=== PATIENT | female | born 1975 | race Caucasian/White ===

== ENCOUNTER → 2020-11-16 07:22 | Outpatient (CLI) | payer BC, SELFPAY ==
--- NOTE | ~2020-11-16 | MM_ITS ---
EXAMINATION: MM screening kim[facility] BI w freya HISTORY: Screening TECHNIQUE: Craniocaudal and mediolateral oblique 3-D tomosynthesis images were obtained and synthetic 2-D images were generated. CAD analysis was submitted and interpreted. COMPARISON: Comparison to multiple prior studies sequentially, with oldest reviewed study dated 04/15. BREAST PARENCHYMAL COMPOSITION: The breasts are heterogeneously dense, which may obscure small masses . FINDINGS: There are developing masses in the right periareolar and right upper outer breast as well a s the left upper outer quadrant anteriorly. There are no suspicious calcifications or architectural d istortion. IMPRESSION: 1. Developing bilateral breast masses. 2. Additional mammographic views and possible breast ultrasound are recommended. BI-RADS Category 0: Incomplete: Needs additional imaging evaluation. Reviewed, dictated and finalized at location A. IMPRESSION: 1. Developing bilateral breast masses. 2. Additional mammographic views and possible breast ultrasound are recommended . BI-RADS Category 0: Incomplete: Needs additional imaging evaluation.
== END ==
PROVIDERS: Visit Provider Obstetrics & Gynecology
DX: Z12.31 Encounter for screening mammogram for malignant neoplasm of breast (principal); R92.8 Other abnormal and inconclusive findings on diagnostic imaging of breast
CPT/HCPCS: 77063; 77067

== ENCOUNTER → 2020-12-18 12:29 | Outpatient (CLI) | payer BC, SELFPAY ==
--- NOTE | ~2020-12-18 | MR_ITS ---
EXAMINATION: MR brain/brain stem wo/w con DATE: 12/18/2020 13:20 INDICATION: Multiple sclerosis. TECHNIQUE: Magnetic resonance imaging (MRI) of the brain and brainstem was performed without and with 15 mL MultiHance intravenous contrast. Sequences included sagittal and axial T1-weighted FLAIR, axia l T1-weighted FSE, axial diffusion-weighted FS EPI, sagittal T2-weighted FLAIR, axial T2*-weighted GR E, axial T2-weighted FLAIR Propeller, and axial T2-weighted Propeller. Postcontrast sequences include d axial, coronal, and sagittal T1-weighted FSE. Apparent diffusion coefficient (ADC) maps were create d. COMPARISON: Brain MRI 04/02/2019 FINDINGS: There are approximately 7 total lesions of increased T2-weighted signal intensity in the br ain. Of these lesions, approximately 5 are periventricular, 2 are juxtacortical, and none are infrate ntorial. None of the lesions enhance. There is no intracranial hemorrhage or acute ischemic infarct. The ventricles are normal in size. The paranasal sinuses are clear. The orbits are normal. There is a right mastoid effusion. IMPRESSION: 1. Stable mild white matter disease, consistent with multiple sclerosis. 2. Chronic right mastoid effusion. Reviewed, dictated and finalized at location A.
[2020-12-18 12:54] LABS: Estimated Glomerular Filt Rate > 60
== END ==
DX: G35 Multiple sclerosis (principal); R93.89 Abnormal findings on diagnostic imaging of other specified body structures; R20.8 Other disturbances of skin sensation; H74.8X1 Other specified disorders of right middle ear and mastoid
CPT/HCPCS: 70553; A9577

== ENCOUNTER → 2020-12-20 08:00 | Outpatient (CLI) | payer BC, SELFPAY ==
--- NOTE | ~2020-12-20 | MMUS_ITS ---
EXAMINATION: MM diagnostic kimberly BI w freya, US breast BI complete HISTORY: Developing bilateral breast masses reported on 11/16/2020 screening mammogram examination TECHNIQUE: Additional 3-D tomosynthesis images of both breasts were performed and synthetic 2-D image s were generated. CAD analysis was submitted and interpreted. High resolution bilateral complete shanel st ultrasound was performed. COMPARISON: 11/16/2020 bilateral digital screening mammogram FINDINGS: MAMMOGRAPHIC FINDINGS: Right breast: Approximately 8mm mass in the medial subareolar right breast Approximately 10.5 mm circumscribed mass with radiolucent hilus consistent with intramammary lymph no de in the posterior upper outer right breast 4.5 mm circumscribed rounded opacity in the upper outer right breast at mid depth. Left breast: 11 mm circumscribed mass with radiolucent hilus consistent with intramammary lymph node in the upper outer quadrant of left breast ULTRASOUND: Right breast: Multiple scattered cysts are noted, including 2:00 subareolar cyst measuring up to 9.4 mm maximal dimension, with through transmission posterior enhancement. At 6:00 subareolar area there is a parallel to 2.3 x 14 x 7 mm sonolucency, consistent with benign pr ocess. At 9:00 9 cm from the nipple there is an up to 11.5 mm benign-appearing lymph node. At 11:00 7 cm from nipple: There is another 11.5 mm benign-appearing lymph node. 10:00 10 cm from nipple: Approximately 11 mm benign-appearing lymph node At 11:00 6 cm from the nipple there is a mildly irregular hypoechoic solid lesion measuring approxima tely 3.7 x 4.6 x 4.4 mm, with some posterior shadowing. Ultrasound-guided biopsy is recommended. Occasional additional smaller sonolucent lesions most likely due to cysts are noted. Left breast: Scattered circumscribed hypoechoic or sonolucent lesions are noted, the largest at 6:00 2 cm from the nipple measuring 2.2 x 8 x 11 mm dimension. There is a benign appearing lymph node at 2:00 6 cm from nipple, measuring up to 11 mm. IMPRESSION: 1. Multiple bilateral breast cysts and lymph nodes. 2. Right breast 11:00 6 cm from nipple: Irregular hypoechoic solid lesion measuring up to 4.6 mm with some posterior shadowing; ultrasound-guided biopsy should be considered. Alternatively, if desired, this can be followed up in 6 months with repeat ultrasound examination. BI-RADS category 4, suspicious findings. Reviewed, dictated and finalized at location A. IMPRESSION: 1. Multiple bilateral breast cysts and lymph nodes. 2. Right breast 11:00 6 cm from nipple: Irregular hypoechoic solid lesion measu ring up to 4.6 mm with some posterior shadowing; ultrasound-guided biopsy shoul d be considered. Alternatively, if desired, this can be followed up in 6 months with repeat ultrasound examination. BI-RADS category 4, suspicious findings.
== END ==
PROVIDERS: Visit Provider Obstetrics & Gynecology
DX: N60.01 Solitary cyst of right breast (principal); N63.11 Unspecified lump in the right breast, upper outer quadrant; N63.41 Unspecified lump in right breast, subareolar
CPT/HCPCS: 76641; 77062; 77066; G0279

== ENCOUNTER 2021-01-16 09:23 | Outpatient (CLI) | payer BC, SELFPAY ==
--- NOTE | ~2021-01-16 | MMUS_ITS ---
EXAMINATION: US breast biopsy RT w image, MM post biopsy invasive RT DATE: 01/16/2021 10:55 (accession [id number]), 01/16/2021 10:54 (accession [id number]) INDICATION: Indeterminate right breast mass. Ultrasound-guided core biopsy is requested to evaluate f or malignancy. TECHNIQUE AND FINDINGS: The risks and potential benefits of the procedure were discussed with the patient including bleeding, infection, and nondiagnostic specimen. A time out was performed. The skin of the right breast was pr epared and draped in usual sterile fashion. 1% lidocaine was used for superficial anesthesia. 1% lido reji with epinephrine was used for deep anesthesia. A vacuum-assisted biopsy gun needle was advanced through to the outer edge of the region of interest from an inferior approach utilizing sonographic guidance. A total of two tissue core samples were obt ained through the lesion. A tissue marker clip was then placed at the biopsy site. Hemostasis was ach ieved. A sterile bandage was applied. The patient tolerated procedure well and there was no evidence of immediate complication. The patient was given verbal instructions to return to the Emergency Department in the event of severe breast pa in or rapid breast enlargement. A two view right breast mammogram was obtained to document tissue mar ker clip placement. IMPRESSION: 1. Successful ultrasound-guided vacuum-assisted biopsy of right breast mass with tissue marker placem ent. Reviewed, dictated and finalized at location A. IMPRESSION: 1. Successful ultrasound-guided vacuum-assisted biopsy of right breast mass wit h tissue marker placement.
== END 2021-01-16 09:24 | disposition home or self-care (01) ==
PROVIDERS: Visit Provider Surgery
DX: R92.8 Other abnormal and inconclusive findings on diagnostic imaging of breast (principal)
CPT/HCPCS: 19083; 88305

== ENCOUNTER → 2021-12-18 07:25 | Outpatient (CLI) | payer OTHER, SELFPAY ==
--- NOTE | ~2021-12-18 | MM_ITS ---
EXAMINATION: MM screening [facility] BI w freya HISTORY: Screening mammogram TECHNIQUE: Craniocaudal and mediolateral oblique 3-D tomosynthesis images were obtained and synthetic 2-D images were generated. CAD analysis was submitted and interpreted. COMPARISON: 12/20/2020, 11/16/2020, 09/25/2018, 08/28/2017 BREAST PARENCHYMAL COMPOSITION: The breasts are heterogeneously dense, which may obscure small masses . FINDINGS: There is no suspicious mass, calcification, or architectural distortion to suggest malignan cy in either breast. There has been no suspicious interval change. IMPRESSION: 1. No mammographic evidence of malignancy. 2. Recommend routine screening mammography in one year. BI-RADS Category 1: Negative Reviewed, dictated and finalized at location A.
== END ==
PROVIDERS: PCP Family Medicine; Visit Provider Obstetrics & Gynecology Gynecology
DX: Z12.31 Encounter for screening mammogram for malignant neoplasm of breast (principal)
CPT/HCPCS: 77063; 77067

== ENCOUNTER → 2022-06-11 13:02 | Outpatient (CLI) | payer OTHER, SELFPAY ==
--- NOTE | ~2022-06-11 | MR_ITS ---
EXAMINATION: MR brain/brain stem wo/w con DATE: 06/11/2022 13:51 INDICATION: Multiple sclerosis. TECHNIQUE: Magnetic resonance imaging (MRI) of the brain and brainstem was performed without and with 16 mL MultiHance intravenous contrast. COMPARISON: Brain MRI 12/18/2020 FINDINGS: There are approximately 7 total lesions of increased T2-weighted signal intensity in the br ain. Of these lesions, approximately 5 are periventricular, 2 are juxtacortical, and none are infrate ntorial. None of the lesions enhance. There is no intracranial hemorrhage or acute ischemic infarct. The ventricles are normal in size. The paranasal sinuses are clear. The orbits are normal. There is a right mastoid effusion. IMPRESSION: 1. Stable mild white matter disease, consistent with multiple sclerosis. 2. Chronic right mastoid effusion. Reviewed, dictated and finalized at location A. GUIDE
== END ==
PROVIDERS: PCP Family Medicine
DX: G35 Multiple sclerosis (principal); D84.821 Immunodeficiency due to drugs; E55.9 Vitamin D deficiency, unspecified; R20.8 Other disturbances of skin sensation; R53.82 Chronic fatigue, unspecified; Z86.16 Personal history of COVID-19; Z51.81 Encounter for therapeutic drug level monitoring; Z79.899 Other long term (current) drug therapy; R90.82 White matter disease, unspecified; H66.91 Otitis media, unspecified, right ear
CPT/HCPCS: 70553; A9577

== ENCOUNTER → 2022-07-26 08:46 | Outpatient (CLI) | payer OTHER, SELFPAY ==
--- NOTE | ~2022-07-26 | MMUS_ITS ---
EXAMINATION: MM diagnostic kimberly RT w freya, US breast RT complete HISTORY: Palpable right breast lump felt during clinical breast examination TECHNIQUE: Additional 3-D tomosynthesis images of the right breast were performed and synthetic 2-D i mages were generated. CAD analysis was submitted and interpreted. High resolution complete right shanel st ultrasound was performed. COMPARISON: Comparison to multiple prior studies sequentially, with oldest reviewed study dated 08/28. BREAST PARENCHYMAL COMPOSITION: The breasts are heterogeneously dense, which may obscure small masses FINDINGS: MAMMOGRAPHIC FINDINGS: There are no new masses, calcifications or architectural distortion in the right breast to suggest ma lignancy. There is a tissue marker in the upper outer quadrant. ULTRASOUND: Complete US of all 4 quadrants of the right breast and retroareolar region was reviewed. There are mu ltiple cysts of the right breast. At 3:00 near the areola there is a round 6 mm hypoechoic mass with enhanced through transmission and low-level internal echoes. No internal vascularity. At 6-7:00, 3 cm from the nipple there is a 1.5 cm cyst. At 10:00, 6 cm from the nipple there is an intramammary lymp h node measuring 9 mm. At 10:00, 3 cm from the nipple there is an irregular shaped hypoechoic mass me asuring 10 x 5 x 8 mm with some angular margins, heterogeneous internal echotexture and mixed posteri or attenuation. No internal vascularity. There are adjacent hypoechoic nodules with similar echotextu re. IMPRESSION: 1. New complex irregular shaped hypoechoic mass of the right breast at 10:00, 3 cm from the nipple. T he largest dominant mass measures up to 10 mm. There are several smaller satellite nodules. 2. Ultrasound-guided right breast biopsy of dominant right breast mass at 10:00, 3 cm from the nipple recommended. BI-RADS category 4, suspicious findings. Reviewed, dictated and finalized at location A. 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 New complex irregular shaped hypoechoic mass of the right breast at 10:00, 3 cm from the nipple. The largest dominant mass measures up to 10 mm. There are several smaller satellite nodules. 2. Ultrasound-guided right breast biopsy of dominant right breast mass at 10:00 , 3 cm from the nipple recommended. BI-RADS category 4, suspicious findings.
== END ==
PROVIDERS: PCP Nurse Practitioner Family; Visit Provider Advanced Practice Midwife
DX: N63.12 Unspecified lump in the right breast, upper inner quadrant (principal); R92.8 Other abnormal and inconclusive findings on diagnostic imaging of breast
CPT/HCPCS: 76641; 77061; 77065; G0279

== ENCOUNTER 2022-08-13 08:53 | Outpatient (CLI) | payer OTHER, SELFPAY ==
--- NOTE | ~2022-08-13 | US_ITS ---
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 The cystic mass at the 10:00 position, 3 cm from the nipple was targeted for aspiration. The procedure and its risk and benefits were discu ssed with the patient. Risks included but were not limited to pain, bleeding and infection. The fawad ent verbalized understanding and provided written consent. A time-out was performed to document the patient's name, date of , and site of procedure. The tamika guzman's right breast was prepped in usual sterile fashion. 1% lidocaine was used for local anesthesi a. Utilizing ultrasound guidance, a 18-gauge needle was advanced into the lesion in the right breast at 10:00, 3 cm from the nipple. Aspiration was performed. Slightly cloudy/clear fluid obtained with resolution of the lesion of interest. No biopsy required. The patient tolerated procedure without immediate complication. Sterile bandages were applied over t he aspiration site(s).] FINDINGS: Successful ultrasound-guided aspiration of right breast mass at 10:00, 3 cm from the nipple . Complete resolution of the lesion of interest. IMPRESSION: 1. Complete resolution of the complicated cyst of the right breast following aspiration. Reviewed, dictated and finalized at location A. RINARY TECHNICIAN IMPRESSION: 1. Complete resolution of the complicated cyst of the right breast following a spiration.
== END 2022-08-13 08:54 | disposition home or self-care (01) ==
PROVIDERS: PCP Nurse Practitioner Family; Visit Provider Surgery
DX: N63.10 Unspecified lump in the right breast, unspecified quadrant (principal)
CPT/HCPCS: 19000; 76942

== ENCOUNTER 2023-03-15 12:52 | Emergency (ER) | payer OTHER, SELFPAY ==
[2023-03-15 13:20] VITALS: BP 142/87; PULSE 93; RESP 18; TEMP 37.4; O2SAT 100
--- NOTE | 2023-03-15 14:05 | ED.URI ---
HPI - URI/Sore Throat General Chief Complaint: Upper Respiratory Infection Stated Complaint: sorethroat Time Seen by Provider: 03/15/23 13:59 Source: patient and RN notes reviewed Mode of arrival: ambulatory Limitations: no limitations History of Present Illness HPI Narrative: Patient presents today complaining of 2 day history of right ear pain, right sided sore throat, and occasionally productive cough. Currently rates her pain 2/10 and has been taking Sudafed and Tylenol with some mild relief. Denies any known sick contacts except for her sister that tested positive for COVID-19 5 days ago. Patient tested herself this morning and was negative. Related Data Home Medications Medication Instructions Recorded Confirmed ocrelizumab 30 mg/mL intravenous 300 mg IV ONCE 06/21/22 03/15/23 solution (Ocrevus) Allergies Allergy/AdvReac Type Severity Reaction Status Date / Time No Known Allergies Allergy Verified 03/15/23 13:57 Review of Systems Review of Systems: CONSTITUTIONAL: Denies body aches, fever, chills, or sweats. EYES: Denies visual changes, redness, or discharge. ENT: Denies rhinorrhea, congestion. + sore throat, right ear pain CARDIOVASCULAR: Denies chest pain, palpitations, or edema. RESPIRATORY: Denies dyspnea.+ cough GASTROINTESTINAL: Denies abdominal pain, nausea, vomiting, or diarrhea. GENITOURINARY: Denies dysuria or hematuria. SKIN: Denies rash, itching, or wounds. MUSCULOSKELETAL: Denies back pain, joint pain, or myalgia. NEUROLOGIC: Denies headache, numbness, tingling, or weakness. PSYCH: Denies depression or anxiety. [facility] Past Medical History Medical History Acute otitis media, right Claustrophobia Encounter to establish care Laryngitis, acute Multiple sclerosis Otitis externa Rhinitis Vitamin D deficiency Surgical History Surgical History H/O tubal ligation History of endometrial ablation Family History Family History Father Hypertension Depression Lung cancer Mother Arrhythmia Sibling Clotting disorder Grandparent Diabetes mellitus Grandparent Lung cancer Brain cancer Social History Social History Smoking status: Former smoker Smoking end date: 07/14/15 Alcohol intake: current Substance use: never Lack of Transportation: No Lack of Food: Never True Current Housing: I Have Housing Concerned About Future Housing: No Difficulty Paying Gas/Electric Bills: No Difficulty Paying for Meds: No Currently Unemployed: No Education: Associate Degree Difficulty w/ Childcare or Family Care: No Living arrangements: with family Occupation/Education: occupation 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 Please see nursing chart for further information. There is no relevant family history pertinent to the presenting complaint Exam Narrative: GENERAL: Well-appearing, well-nourished, and in no acute distress. HEAD: Normocephalic, atraumatic. EYES: EOMI. No redness or drainage. Conjunctivae normal. ENT: Mucous membranes pink and moist. Nares clear. No rhinorrhea. TMs normal bilaterally. Throat mildly erythematous without edema or exudate. Uvula midline. NECK: Normal AROM. Supple. No lymphadenopathy. CHEST: No respiratory distress. Clear to auscultation. HEART: Regular rate and rhythm. No murmur appreciated. Normal peripheral pulses. EXTREMITIES: Normal range of motion. No edema. SKIN: Warm, dry, no rash. Capillary refill normal. Normal skin turgor. NEURO: No focal deficits. Alert and
== END 2023-03-15 14:33 | disposition home or self-care (01) ==
PROVIDERS: Emergency Provider Nurse Practitioner; PCP Family Medicine
DX: J06.9 Acute upper respiratory infection, unspecified (principal); J02.9 Acute pharyngitis, unspecified; Z87.891 Personal history of nicotine dependence; G35 Multiple sclerosis
CPT/HCPCS: 87081; 87880; 99213; G0463

== ENCOUNTER 2023-10-20 15:13 | Outpatient (CLI) | payer OTHER, SELFPAY ==
--- NOTE | ~2023-10-20 | MR_ITS ---
. EXAMINATION: MR brain/brain stem wo/w con DATE: 10/20/2023 15:57 INDICATION: Multiple sclerosis. TECHNIQUE: Magnetic resonance imaging (MRI) of the brain and brainstem was performed without and with 15 mL MultiHance intravenous contrast. COMPARISON: None currently available. FINDINGS: There are approximately 5 lesions of increased T2-weighted signal intensity in the cerebral white matter including periventricular and juxtacortical lesions. There is no infratentorial lesion. There is no acute ischemic infarct or intracranial hemorrhage. The ventricles are normal in size. Th ere is a right mastoid effusion. The orbits are normal. The paranasal sinuses are clear. IMPRESSION: 1. Mild white matter disease, consistent with multiple sclerosis. These findings are similar to those described on the report from the brain MRI from 06/11/2022. Those images are not currently available . 2. Chronic right mastoid effusion. Reviewed, dictated and finalized at location A. IMPRESSION: 1. Mild white matter disease, consistent with multiple sclerosis. These finding s are similar to those described on the report from the brain MRI from 06/11/20 22. Those images are not currently available. 2. Chronic right mastoid effusion.
== END 2023-10-20 15:14 ==
LOC: MICIMG 15:15
DX: G35 Multiple sclerosis (principal); H74.8X1 Other specified disorders of right middle ear and mastoid; R90.82 White matter disease, unspecified
CPT/HCPCS: 70553; A9577

== ENCOUNTER 2024-05-27 05:52 | Day surgery (SDC) | payer OTHER, SELFPAY ==
[2024-03-09 13:34] VITALS: BMI 26.0
[2024-05-27 06:49] VITALS: BP 126/76; PULSE 80; RESP 16; TEMP 36.7; O2SAT 98; BMI 24.0
[2024-05-27] MEDS: LACTATED RINGERS 1,000 ML 150 ML IV CONT (06:52)
--- NOTE | 2024-05-27 07:00 | WPDANESEPPF ---
Anes - Initial Pre Proc Eval Procedure: Operation Date: 05/27/24 07:30 Proposed Procedures p Screening Colonoscopy - Gary Pierre MD Date/Time: 05/27/24 07:00 Surgeon: Gary Pierre MD Pre Op Diagnosis: Screening Neoplasm of Colon Patient Data Age: 49 Gender: F Height: 1.78 m Weight: 76.1 kg Last Vital Signs Temp 36.7 C 05/27/24 06:49 Pulse 80 05/27/24 06:49 Resp 16 05/27/24 06:49 BP 126/76 05/27/24 06:49 Pulse Ox 98 05/27/24 06:49 O2 Del Method Room Air 05/27/24 06:49 Allergies Allergy/AdvReac Type Severity Reaction Status Date / Time No Known Allergies Allergy Verified 05/27/24 06:48 Home Medications Medication Instructions Recorded Confirmed Type ocrelizumab 30 mg/mL intravenous 300 mg IV ONCE 06/21/22 05/27/24 History solution (Ocrevus) gabapentin 800 mg tablet 800 mg PO TID #90 tabs 10/02/22 05/27/24 Rx sodium,potassium,mag sulfates 17.5 See Rx Instructions PO .COMPLEX 03/09/24 05/27/24 Rx gram-3.13 gram-1.6 gram oral soln #354 mL (Suprep Bowel Prep Kit) Vitamin D3 1 tab-cap PO DIRECTED 05/12/24 05/27/24 History Patient hx anesthesia problems: none Family hx anesthesia problems: none Results Review: All pre-operative results and documents have been reviewed as part of the pre-operative evaluation. [facility] Past Medical History Medical History Acute otitis media, right Claustrophobia Encounter to establish care Laryngitis, acute Multiple sclerosis Otitis externa Rhinitis Vitamin D deficiency Surgical History Surgical History H/O tubal ligation History of endometrial ablation Family History Family History Father Hypertension Depression Lung cancer Mother Arrhythmia Sibling Clotting disorder Grandparent Diabetes mellitus Grandparent Lung cancer Brain cancer Social History Social History (Reviewed 05/27/24 @ 07:00 by VASYL Coffman Smoking status: Never smoker Smoking end date: 07/14/15 Alcohol intake: current Drinks per week: 3 Substance use: never Substance use type: does not use Lack of Transportation: No Lack of Food: Never True Current Housing: I Have Housing Concerned About Future Housing: No Difficulty Paying Gas/Electric Bills: No Difficulty Paying for Meds: No Currently Unemployed: No Education: Associate Degree Difficulty w/ Childcare or Family Care: No Living arrangements: with family Occupation/Education: occupation 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 Informed Consent: The patient's anesthetic plan and its attendant risks and benefits were discussed with the patient/family/POA. Questions were solicited and answers provided to the satisfaction of the patient/family/POA.
--- NOTE | 2024-05-27 07:01 | PM.HPGS ---
History of Present Illness History of Present Illness Consent: Risks, benefits, and alternatives have been discussed and questions answered. Patient agrees to proceed with procedure. Chief complaint: Screening Neoplasm of Colon Narrative: Darlin Valles is a 49 year old female colonoscopy. Patient's current weight appetite and bowel movements are normal. She denies abdominal pain. Patient has had no bleeding. Family history is noncontributory. Review of Systems Review of Systems: All systems reviewed & are unremarkable except as noted in HPI and below PMFSH Past Medical History Medical History Acute otitis media, right Claustrophobia Encounter to establish care Laryngitis, acute Multiple sclerosis Otitis externa Rhinitis Vitamin D deficiency Surgical History Surgical History H/O tubal ligation History of endometrial ablation Family History Family History Father Hypertension Depression Lung cancer Mother Arrhythmia Sibling Clotting disorder Grandparent Diabetes mellitus Grandparent Lung cancer Brain cancer Social History Social History Smoking status: Never smoker Smoking end date: 07/14/15 Alcohol intake: current Drinks per week: 3 Substance use: never Substance use type: does not use Lack of Transportation: No Lack of Food: Never True Current Housing: I Have Housing Concerned About Future Housing: No Difficulty Paying Gas/Electric Bills: No Difficulty Paying for Meds: No Currently Unemployed: No Education: Associate Degree Difficulty w/ Childcare or Family Care: No Living arrangements: with family Occupation/Education: occupation 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 Gender identity (if verbalized by the patient): Female Meds Home Medications and Allergies Home Medications Medication Instructions Recorded Confirmed Type ocrelizumab 30 mg/mL intravenous 300 mg IV ONCE 06/21/22 05/27/24 History solution (Ocrevus) gabapentin 800 mg tablet 800 mg PO TID #90 tabs 10/02/22 05/27/24 Rx sodium,potassium,mag sulfates 17.5 See Rx Instructions PO .COMPLEX 03/09/24 05/27/24 Rx gram-3.13 gram-1.6 gram oral soln #354 mL (Suprep Bowel Prep Kit) Vitamin D3 1 tab-cap PO DIRECTED 05/12/24 05/27/24 History Allergies Allergy/AdvReac Type Severity Reaction Status Date / Time No Known Allergies Allergy Verified 05/27/24 06:48 Vital Signs Vital Signs - 24 hr 05/27/24 06:49 Temperature 98.1 F Pulse Rate 80 Respiratory Rate 16 Blood Pressure 126/76 Pulse Oximetry 98 Oxygen Delivery Room Air Exam Narrative: Physical exam reveals patient to be alert. Vital signs stable. HEENT exam is unremarkable. Patient is anicteric. Lungs are clear to auscultation and percussion heart is without murmur or extra sounds. Abdomen bowel sounds are present soft nontender with no organomegaly. Digital external rectal exam is normal. Assessment and Plan Assessment and plan (1) Screen for colon cancer: Code(s): Z12.11 - Encounter for screening for malignant neoplasm of colon Status: Acute Assessment and Plan: The patient presents today for screening colonoscopy. She appears to be at average risk for colon polyps. Further recommendations may be given after endoscopy.
[2024-05-27 07:41] VITALS: BP 96/62; PULSE 80; RESP 18; O2SAT 100
[2024-05-27 07:51] VITALS: BP 107/65; PULSE 63; RESP 16; O2SAT 100
[2024-05-27 08:01] VITALS: BP 120/79; PULSE 66; RESP 15; O2SAT 100
--- NOTE | 2024-05-27 12:55 | WPDANESPN ---
Anes - Prog Note Post-Op Date/Time: 05/27/24 12:55 Cardiovascular status: normal Respiratory status: normal Airway patency: baseline Mental status: baseline Post-Op hydration status: normal Vital Signs: Last Vital Signs Temp 36.7 C 05/27/24 06:49 Pulse 66 05/27/24 08:01 Resp 15 05/27/24 08:01 BP 120/79 05/27/24 08:01 Pulse Ox 100 05/27/24 08:01 O2 Del Method Room Air 05/27/24 08:01 Pain Score (VAS): 0 I/O: Intake & Output 05/26/24 05/27/24 05/27/24 23:59 07:59 15:59 Intake Total 0 250 Balance 0 250 Post-procedural complaints: none Patient Feedback: Patient satisfied with anesthetic care. Other Findings: Patient vital signs back to baseline. Patient denies nausea and vomiting. Patient's pain under control. Patient OK for discharge.
== END 2024-05-27 08:11 | disposition home or self-care (01) ==
PROVIDERS: PCP Family Medicine; Visit Provider Internal Medicine Gastroenterology
PROC: 0DJD8ZZ Inspection of Lower Intestinal Tract, Via Natural or Artificial Opening Endoscopic (ICD-10-PCS; CPT 45378; principal; 2024-05-27 07:30)
DX: Z12.11 Encounter for screening for malignant neoplasm of colon (principal); K64.8 Other hemorrhoids
CPT/HCPCS: 45378

== ENCOUNTER 2025-01-08 08:23 | Outpatient (CLI) | payer OTHER, SELFPAY ==
--- NOTE | ~2025-01-08 | MM_ITS ---
EXAMINATION: MM screening [facility] BI w freya HISTORY: Screening mammogram TECHNIQUE: Craniocaudal and mediolateral oblique 3-D tomosynthesis images were obtained and synthetic 2-D images were generated. CAD analysis was submitted and interpreted. COMPARISON: 07/26/2022, 12/18/2021, 12/20/2020, 11/16/2020 BREAST PARENCHYMAL COMPOSITION:Dense: The breasts are heterogeneously dense, which may obscure small masses. FINDINGS: No suspicious mass, calcification, or architectural distortion are identified in either rafaela ast to suggest malignancy. There has been no suspicious interval change. IMPRESSION: No mammographic evidence of malignancy. Recommend routine screening mammography in one year. BI-RADS Category 1: Negative Reviewed, dictated and finalized at location .
== END 2025-01-08 08:24 | disposition home or self-care (01) ==
PROVIDERS: PCP Obstetrics & Gynecology Gynecology; Visit Provider Obstetrics & Gynecology Gynecology
DX: Z12.31 Encounter for screening mammogram for malignant neoplasm of breast (principal)
CPT/HCPCS: 77063; 77067

== ENCOUNTER 2025-05-23 12:50 | Outpatient (CLI) | payer OTHER, SELFPAY ==
--- NOTE | ~2025-05-23 | MR_ITS ---
EXAMINATION: MR brain/brain stem wo/w con DATE: 05/23/2025 13:41 INDICATION: Multiple sclerosis. TECHNIQUE: Magnetic resonance imaging (MRI) of the brain and brainstem was performed without with 15 mL MultiHance intravenous contrast. COMPARISON: Brain MRI 10/20/2023, 05/22/2022 FINDINGS: There are approximately 9 lesions of increased T2-weighted signal intensity in the cerebral white matter including periventricular and juxtacortical lesions. There are no infratentorial lesions. None of the lesions enhance. There is no acute ischemic infarct or intracranial hemorrhage. The ve ntricles are normal in size. There is a right mastoid effusion. The orbits are normal. The paranasal sinuses are clear. IMPRESSION: 1. Mild white matter disease, stable from 10/20/2023 and 05/22/2022, consistent with multiple sclerosis. 2. Chronic right mastoid effusion. Reviewed, dictated and finalized at location E. 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 Mild white matter disease, stable from 10/20/2023 and 05/22/2022, consistent wi th multiple sclerosis. 2. Chronic right mastoid effusion.
== END 2025-05-23 12:51 | disposition home or self-care (01) ==
LOC: MICIMG 12:54
PROVIDERS: PCP Nurse Practitioner Family
DX: R90.82 White matter disease, unspecified (principal); G35.D Multiple sclerosis, unspecified; H74.8X1 Other specified disorders of right middle ear and mastoid; D84.821 Immunodeficiency due to drugs; R20.8 Other disturbances of skin sensation; R93.89 Abnormal findings on diagnostic imaging of other specified body structures; Z51.81 Encounter for therapeutic drug level monitoring; Z86.16 Personal history of COVID-19; Z79.899 Other long term (current) drug therapy
CPT/HCPCS: 70553; A9577